=== PATIENT | male | born 2000 | race Caucasian/White ===

== ENCOUNTER 2020-10-29 09:48 | Observation (INO) | payer OTHER ==
[2020-10-29] VITALS (10 sets, daily range): BP systolic 95–126; BP diastolic 44–73
[~2020-10-29] VITALS: Ht 182.9 cm; Wt 75.0 kg
--- NOTE | 2020-10-29 06:04 | NUR ---
PATIENT IS AWAKE AND ALERT, PATIENT STATES LEFT HAND AND FINGERS ARE STILL NUMB, LEFT FINGERS WARM AND CAP REFILL OF 2-3 SEC, DISCHARGE INSTRUCTIONS GIVEN TO PATIENT AND HIS MOTHER AT BEDSIDE, AGREED TO GET DISCHARGED FROM HOSPITAL, AND VERBALIZED UNDERSTANDING. DENNIS WRAP AND DRESSING CDI AND SLING ON LEFT ARM, PIV D/C'D FROM RIGHT AC 18G CATHETER INTACT, PATIENT WAS TRANSFERRED WITH ONE BAG OF PERSONAL BELONGINGS TO PRIVATE VEHICLE WITH NO INCIDENTS, PATIENT'S MOTHER DRIVES PATIENT HOME. Addendum: 10/29/20 at 1716 by Lynnette Smith RN Amended: Links added.
[~2020-10-29 09:48] MED LIST: NO HOME MEDS; ZOF4T PO
[2020-10-29] MEDS ORDERED: fentaNYL/PF 50MCG/1 ML 2ML syringe ONE ×2 (09:53→13:18)
[2020-10-29] MEDS ORDERED: fentaNYL/PF 50MCG/1 ML 2ML syringe IV ONE (09:55)
[2020-10-29 10:11] LABS: BASOPHILS % (AUTO) 0.7 % (0-1); EOSINOPHILS # (AUTO) 0.1 X10'3 (0-0.9); EOSINOPHILS % (AUTO) 1.6 % (0-6); HEMATOCRIT 42.8 % (42.0-52.0); HEMOGLOBIN 14.9 g/dl (14.0-17.9); LYMPHOCYTES # (AUTO) 1.9 X10'3 (1.1-4.8); LYMPHOCYTES % (AUTO) 30.1 % (21-51); MEAN CORPUSCULAR HEMOGLOBIN 31.2 PG (27.0-31.0); MEAN CORPUSCULAR HGB CONC 34.8 g/dL (33.0-36.5); MEAN CORPUSCULAR VOLUME 89.7 FL (78-98); MEAN PLATELET VOLUME 8.8 FL (7.4-10.4); MONOCYTES # (AUTO) 0.6 X10'3 (0-0.9); MONOCYTES % (AUTO) 8.8 % (2-12); NEUTROPHILS # (AUTO) 3.7 X10'3 (1.8-7.7); NEUTROPHILS % (AUTO) 58.8 % (42-75); PLATELET COUNT 242 X10'3 (140-440); RED BLOOD COUNT 4.77 X10'6 (4.70-6.10); RED CELL DISTRIBUTION WIDTH 12.8 % (11.5-14.5); WHITE BLOOD COUNT 6.2 X10'3 (4.5-11.0)
[2020-10-29] MEDS ORDERED: ketamine 10mg/ml 20ml inj IV ONE (10:15)
[2020-10-29] MEDS ORDERED: TETanus/Pertussis (Acell)/Diphther VAC/PF (Tdap-Adult) 0.5ml syringe IMVAC ONE (10:15)
[2020-10-29] MEDS ORDERED: LIDOcaine 1% W/epiNEPHrine 1:200,000 10ml vial IJ ONE (10:15)
[2020-10-29] MEDS ORDERED: ketamine 50mg/5ml syringe IV ONE (10:25)
[2020-10-29 10:30] LABS: ALANINE AMINOTRANSFERASE 18 U/L (12-78); ALBUMIN 4.6 G/DL (3.4-5.0); ALKALINE PHOSPHATASE 62 IU/L (46-116); ANION GAP 8 (8-16); ASPARTATE AMINO TRANSFERASE 26 U/L (10-37); BILIRUBIN,TOTAL 0.9 MG/DL (0.1-1.0); BLOOD UREA NITROGEN 13 MG/DL (7-18); BUN/CREATININE RATIO 12.5 (5.4-32.0); CALCIUM 9.8 MG/DL (8.5-10.1); CHLORIDE 104 MMOL/L (99-107); CREATININE 1.04 MG/DL (0.60-1.10); GLUCOSE 124 MG/DL (70-104); POTASSIUM 3.9 MMOL/L (3.5-5.1); SODIUM 140 MMOL/L (135-145); TOTAL CARBON DIOXIDE 27.8 MMOL/L (24-32); eGFR 89 ML/MIN
--- NOTE | 2020-10-29 10:30 | NUR ---
Patient arrived via POV to ED. Patient has been extremely uncooperative and difficult to console. Patient has been cursing, yelling, and disruptive to department as whole.
[2020-10-29] MEDS ORDERED: ceFAZolin/D5W- 1GM premix 50 ML IV STA (10:33)
[2020-10-29] MEDS ORDERED: ketamine 50 mg/ml 10ml vial IV ONE (10:35)
[2020-10-29] MEDS: propofol 1000mg/100ml bottle 100 ML IV ONE ×2 (10:46→11:15)
[2020-10-29] MEDS ORDERED: iohexol 300mg/ml 100ml inj. ONE (11:30)
[2020-10-29] MEDS ORDERED: morphine 2 MG/ML inj. syringe IV ONE (11:30)
--- NOTE | 2020-10-29 11:31 | NUR ---
propofol 100mg total admin by dr porter.
[2020-10-29] MEDS ORDERED: PENI500T2 PO (11:58)
[2020-10-29] MEDS ORDERED: gentamicin in saline, iso-osm 80 MG/50 ML premix IV ONE (12:00)
[2020-10-29] MEDS ORDERED: AMOX500C4 PO (12:22)
--- NOTE | 2020-10-29 12:31 | NUR ---
Patient mother came to bedside. Per patient he stated he asked for a mask for 1.5 hours upon arrival. Patient did not ask for mask upon arrival and was rather disruptive to ED. Dr. Chirinos came bedside to discuss with mother.
[2020-10-29] MEDS ORDERED: gentamicin inj 80 MG in normal saline 100ml IV soln 100 ML IV ONE (12:35)
[2020-10-29] MEDS ORDERED: gentamicin inj 80 MG in normal saline 100ml IV soln 98 ML IV ONE (12:45)
[2020-10-29] MEDS ORDERED: morphine 4 MG/ML inj SYRINge IV ONE (12:55)
--- NOTE | 2020-10-29 12:57 | NUR ---
OR bedside. Patient to OR. Mother bedside and aware
--- NOTE | 2020-10-29 13:11 | NUR ---
patient to OR
[2020-10-29] MEDS ORDERED: sevoflurane 250ml liquid IH ONE (13:14)
[2020-10-29] MEDS ORDERED: ondansetron/PF 4mg/2ml inj IV PRN ×2 (13:15→13:20)
[2020-10-29] MEDS ORDERED: meperidine/PF 25mg/ml syringe IV PRN ×3 (13:15)
[2020-10-29] MEDS ORDERED: proCHLORperazine 10 MG/2 ml inj IV PRN (13:15)
[2020-10-29] MEDS ORDERED: morphine 4 MG/ML inj SYRINge IV PRN (13:15)
[2020-10-29] MEDS ORDERED: ringers solution, lacted 1,000 ML IV SCH (13:15)
[2020-10-29] MEDS ORDERED: morphine 2 MG/ML inj. syringe IV PRN ×3 (13:15→13:20)
[2020-10-29] MEDS ORDERED: midazolam 1 mg/ML 2ml injection ONE (13:18)
[2020-10-29] MEDS ORDERED: magnesium 4gm in 100ml NS 100 ML IV PRN (13:20)
[2020-10-29] MEDS ORDERED: normal saline 1000ml 1,000 ML IV SCH (13:20)
[2020-10-29] MEDS ORDERED: mag hydrox/Alum hydrox/simeth 30ml oral suspension PO PRN (13:20)
[2020-10-29] MEDS ORDERED: HYDROcodone/acetaminophen 10/325mg tab PO PRN (13:20)
[2020-10-29] MEDS ORDERED: potassium Cl 40MEQ/1/2NS 520ml 520 ML IV PRN ×2 (13:20)
[2020-10-29] MEDS ORDERED: potassium Cl 20 mEq SR tablet PO PRN ×2 (13:20)
[2020-10-29] MEDS ORDERED: HYDROcodone/acetaminophen 5mg/325mg tablet PO PRN (13:20)
[2020-10-29] MEDS ORDERED: acetaminophen 325mg tablet PO PRN (13:20)
[2020-10-29] MEDS ORDERED: magnesium 2GM in 50ml NS 50 ML IV PRN (13:20)
[2020-10-29] MEDS ORDERED: magnesium hydroxide 30ml (MOM) UD suspension PO PRN (13:20)
[2020-10-29 13:23] LABS: CLARITY,URINE CLEAR (Clear); COLOR,URINE YELLOW (Yellow); GLUCOSE, URINE NEGATIVE (Neg); KETONES,URINE NEGATIVE (Neg); LEUKOCYTE ESTERASE ,URINE NEGATIVE (Neg); NITRITES, URINE NEGATIVE (Neg); OCCULT BLOOD,URINE NEGATIVE (Neg); PH,URINE 5.5 (4.8-8.0); PROTEIN,URINE NEGATIVE (Neg); UROBILINOGEN,URINE 0.2 E.U/dL (0.2-1.0)
[2020-10-29 13:50] LABS: UA COLLECTION TYPE NON-SPECIFIED
[2020-10-29] MEDS ORDERED: propofol inj 20 ML IV ONE (13:56)
[2020-10-29] MEDS ORDERED: ROPIVAcaine 0.5% (5mg/ml) 30ml vial ONE (13:56)
--- NOTE | 2020-10-29 14:24 | NUR ---
Received from OR via [facility], accompanied by Anesthesiologist and report given by Anesthesiologist. PATIENT IS SLEEPING ON SUPINE, LMA IN PLACE WITH 10L O2 MASK OVER THE TUBE, V.S. STABLE, PIV ON LEFT AC 18G, LR RUNNING AT 100ML/HR, LEFT WRIST WRAPPED WITH DENNIS WRAP AND DRESSING CDI, SLING ON LEFT ARM, AND ICE ON LEFT WRIST AND ELEVATED WITH PILLOWS, WILL MONITOR. Addendum: 10/29/20 at 1502 by Lynnette Smith RN Amended: Links added.
--- NOTE | 2020-10-29 14:24 | NUR ---
INITIAL ASSESSMENT OF PATIENT AT RECOVERY ROOM, PATIENT IS NOT ABLE TO MOVE HIS FINGERS OR FEEL THE SENSATIONS ON LEFT HAND AND FINGERS AT THIS TIME, HAS CAP REFILL OF 2-3 SEC ON LEFT FINGERS, WARM TO TOUCH. Addendum: 10/29/20 at 1856 by Lynnette Smith RN Amended: Links added.
--- NOTE | 2020-10-29 14:54 | NUR ---
PATIENT'S LMA EXTUBATED APPROXIMATELY 30 MINUTES AFTER HIS ARRIVAL WITH NO INCIDENTS. PATIENT IS ALERT AND ORIENTATED, V.S. STABLE AFTER EXTUBATION. Addendum: 11/01/20 at 0828 by Lynnette Smith RN Amended: Links added.
--- NOTE | 2020-10-29 15:30 | NUR ---
PATIENT'S MOTHER AND PATIENT TALKED TO DR. JARQUIN AND IS OK TO DISCHARGE PATIENT HOME WITH PRESCRIPTIONS OF KEFLEX AND NORCO 5/325. PATIENT AND MOTHER AGREED THAT IT IS OK TO GET DISCHARGED HOME WITH THE PRESCRIPTIONS, ELEVATE THE ARM ABOVE HEART, AND ICE, AFTER DISCUSSING WITH DR. JARQUIN. AFTER LEFT AND EXPLAINING THE PRESCRIPTIONS THAT PATIENT IS GETTING, MOTHER OF THE PATIENT STATES "THERE IS NO WAY NORCO 5 WILL HELP WITH PAIN AT HOME. I KNOW WHAT NORCO 5 IS AND IT DIDN'T EVEN HELP WITH THE PAIN WHEN HE HAD HIS TOOTH PULLED RECENTLY. I'M NOT TAKING HIM HOME WITH ONLY NORCO 5." MOTHER THEN CALLED DR. JARQUIN'S OFFICE AND LEFT MESSAGE ABOUT REQUESTING STRONGER PAIN MEDICATION. DIRECTOR AGUIRRE HAS BEEN NOTIFIED. Addendum: 10/29/20 at 1603 by Lynnette Smith RN Amended: Links added.
--- NOTE | 2020-10-29 15:50 | NUR ---
DIRECTOR AGUIRRE TALKED WITH MOTHER AND PATIENT ABOUT THIER REQUEST AND MOTHER IS REQUESTING TO EITHER GET PRESCRIPTION FOR A STRONGER PAIN MEDICATION OR STAYING IN THE HOSPITAL. TIMOTHY CALLED DR. JARQUIN FOR OBTAINING ORDERS. Addendum: 10/29/20 at 1603 by Lynnette Smith RN Amended: Links added.
[2020-10-29] MEDS ORDERED: ceFAZolin/D5W- 1GM premix 50 ML IV SCH (16:00)
--- NOTE | 2020-10-29 16:04 | NUR ---
PATIENT IS STABLE, ALERT AND ORIENTED, DENIES PAIN, NAUSEA, OR DISTRESS AT DISCHARGE, PATIENT STILL NOT ABLE TO MOVE LEFT FINGERS, LEFT FINGERS WARM TO TOUCH AND CAP REFILL OF 2-3 SEC NOTED, PIV D/C'D FROM RIGHT AC 18G CATHETER INTACT, MOTHER OF PATIENT AGREED FOR PATIENT TO BE DISCHARGED HOME WITH PRESCRIPTIONS FOR PAIN (NORCO 5/325) AND ANTIBIOTICS (KEFLEX), AND VERBALIZED UNDERSTANDING OF DISCHARGE INSTRUCTIONS INCLUDING TO ELEVATE THE LEFT ARM AND ICE TO MANAGE PAIN. DENNIS WRAP AND DRESSING CDI ON LEFT WRIST AND SLING ON LEFT ARM, PATIENT WAS TRANSFERRED WITH ONE BAG OF BELONGINGS TO PRIVATE VEHICLE WITH WHEELCHAIR WITHOUT INCIDENTS, MOTHER OF PATIENT WILL DRIVE HOME. Addendum: 10/29/20 at 1827 by Lynnette Smith RN Amended: Links added.
--- NOTE | 2020-10-29 16:23 | NUR ---
Spoke with Dr. Duran after speaking with mother of pt. She is requesting he stay overnight and get IV pain medicine because his arm is going to hurt as soon as the block wears off. She was also upset because she believed the norco prescription wasn't strong enough. I explained to her that he doesn't meet admission criteria and that often times patients that have this surgery are discharged in the same day. In addition the pt is having no pain at all. The block is working very well. Called and spoke with Dr. Duran. He also stated that the pt didn't need to stay the night. Mom was demanding stronger pain medicine because she was told that pt's arm was going to hurt when the block wore off. I asked Dr. Duran about this as well, and he said he could double the norco 5's for 24 hours, but then needed to cut back or he would run out of pills. He also suggested that he use motrin, or aleve in addition to the norco. I did extensive teaching with mom about ice, elevation, protecting the ulnar nerve until the block wears off, and adding motrin or aleve to the pain medicine. The mom stated that she understood all of the instructions and they both seemed satisfied when they left.
[2020-10-29] MEDS ORDERED: K and/or MAG REPLACEMENT MC SCH (20:00)
[2020-10-29] MEDS ORDERED: amoxicillin 250mg capsule PO SCH (21:00)
[2020-10-30] MEDS ORDERED: ONDA8TAB13 PO (01:50)
== END 2020-10-29 16:23 | disposition home or self-care (01) ==
LOC: ER 09:49 → ED HOLD 13:19
PROVIDERS: ADMIT Family Medicine; ATTEND Family Medicine
DX: S52.502B Unspecified fracture of the lower end of left radius, initial encounter for open fracture type I or II (principal); S52.002B Unspecified fracture of upper end of left ulna, initial encounter for open fracture type I or II; Z20.822 Contact with and (suspected) exposure to COVID-19; S01.81XA Laceration without foreign body of other part of head, initial encounter; Z23 Encounter for immunization; F12.90 Cannabis use, unspecified, uncomplicated; W13.2XXA Fall from, out of or through roof, initial encounter; Y93.89 Activity, other specified; Y92.89 Other specified places as the place of occurrence of the external cause
CPT/HCPCS: 12011; 25608; 36415; 70450; 71045; 71260; 72125; 73090; 73130; 74177; 80053; 81003; 85025; 85610; 86885; 86900; 86901; 87635; 90471; 94760; 94799; 96365; 96367; 96375; 96376; 99291; 99292; A6222; C1713; C9803; G0378; J0690; J1580; J2250; J2270; J2704; J3010; J7120; Q9967; 90715; A4215; A4618; A6449; A7000; J2795

== ENCOUNTER 2020-10-29 22:22 | Emergency (ER) | payer OTHER ==
[~2020-10-29] VITALS: Ht 182.9 cm; Wt 75.0 kg
[~2020-10-29 22:22] MED LIST changes: +AMOX500C4 PO; +PENI500T2 PO
[2020-10-29] MEDS ORDERED: LORazepam 2 mg/ml vial IV ONE (22:40)
[2020-10-29] MEDS ORDERED: proCHLORperazine 10 MG/2 ml inj IV ONE (22:40)
[2020-10-29] MEDS ORDERED: morphine 4 MG/ML inj SYRINge IV ONE (22:40)
[2020-10-30] MEDS: morphine 2 MG/ML inj. syringe IV PRN ×2 (00:22→01:05)
[2020-10-30] MEDS ORDERED: LORazepam 2 mg/ml vial IV ONE (00:35)
[2020-10-30] MEDS ORDERED: ONDA8TAB13 PO (01:50)
[2020-10-30 02:17] VITALS: BP 145/89
[2020-10-30] MEDS ORDERED: morphine 2 MG/ML inj. syringe IM ONE (02:35)
== END 2020-10-30 02:48 | disposition home or self-care (01) ==
LOC: ER 22:23
DX: G89.18 Other acute postprocedural pain (principal); Z88.2 Allergy status to sulfonamides; Z79.899 Other long term (current) drug therapy
CPT/HCPCS: 96372; 96374; 96375; 96376; 99285; J0780; J2060; J2270

== ENCOUNTER 2021-02-14 07:07 | Day surgery (SDC) | payer OTHER ==
[2021-02-07 15:13] LABS: BASOPHILS % (AUTO) 0.7 % (0-1); EOSINOPHILS # (AUTO) 0.1 X10'3 (0-0.9); EOSINOPHILS % (AUTO) 1.7 % (0-6); LYMPHOCYTES # (AUTO) 1.4 X10'3 (1.1-4.8); LYMPHOCYTES % (AUTO) 20.6 % (21-51); MEAN CORPUSCULAR HEMOGLOBIN 30.7 PG (27.0-31.0); MEAN CORPUSCULAR VOLUME 87.8 FL (78-98); MEAN PLATELET VOLUME 8.6 FL (7.4-10.4); MONOCYTES # (AUTO) 0.6 X10'3 (0-0.9); MONOCYTES % (AUTO) 9.1 % (2-12); NEUTROPHILS # (AUTO) 4.5 X10'3 (1.8-7.7); NEUTROPHILS % (AUTO) 67.9 % (42-75); PRE OP HEMATOCRIT 40.1 % (42.0-52.0); PRE OP PLATELET COUNT 238 X10'3 (140-440); RED BLOOD COUNT 4.56 X10'6 (4.70-6.10); RED CELL DISTRIBUTION WIDTH 12.7 % (11.5-14.5)
[2021-02-07 15:29] LABS: ALBUMIN 4.1 G/DL (3.4-5.0); ALBUMIN/GLOBULIN RATIO 0.9 (1.1-1.5); ALKALINE PHOSPHATASE 79 IU/L (46-116); BLOOD UREA NITROGEN 11 MG/DL (7-18); BUN/CREATININE RATIO 12.4 (5.4-32.0); CALCIUM 9.1 MG/DL (8.5-10.1); CHLORIDE 102 MMOL/L (99-107); CREATININE 0.89 MG/DL (0.60-1.10); PRE OP ALT 12 U/L (30-65); PRE OP ANION GAP 6 (8-16); PRE OP AST 12 U/L (10-37); PRE OP BILIRUB, TOTAL 0.7 MG/DL (0.0-1.0); PRE OP GLUCOSE 94 MG/DL (70-104); PRE OP POTASSIUM 3.9 MMOL/L (3.4-5.1); PRE OP SODIUM 140 MMOL/L (135-145); TOTAL CARBON DIOXIDE 31.7 MMOL/L (24-32); TOTAL PROTEIN 8.7 G/DL (6.4-8.2); eGFR > 90 ML/MIN
[2021-02-14] VITALS (8 sets, daily range): BP systolic 85–125; BP diastolic 53–78
[~2021-02-14] VITALS: Ht 182.9 cm; Wt 67.7 kg
[~2021-02-14 07:07] MED LIST changes: -AMOX500C4 PO; +HYDR-3964 PO; -NO HOME MEDS; -PENI500T2 PO; -ZOF4T PO; +cefazolin/dext.iso 2gm/100ml IV ONE; +famotidine 20mg tablet PO ONE; +ringers solution, lacted 1,000 ML IV SCH
[2021-02-14] MEDS ORDERED: LIDOcaine 0.5% (5mg/ml) 50ml vial ONE (07:11)
[2021-02-14] MEDS ORDERED: ringers solution, lacted 1,000 ML IV SCH (08:00)
[2021-02-14] MEDS ORDERED: ondansetron/PF 4mg/2ml inj IV PRN (08:00)
[2021-02-14] MEDS ORDERED: labetalol 20mg/4ml (5mg/ml) syringe IV PRN (08:00)
[2021-02-14] MEDS ORDERED: fentaNYL/PF 50MCG/1 ML 2ML syringe IV PRN ×2 (08:00)
[2021-02-14] MEDS ORDERED: morphine 2 MG/ML inj. syringe IV PRN (08:00)
[2021-02-14] MEDS ORDERED: morphine 4 MG/ML inj SYRINge IV PRN (08:00)
[2021-02-14] MEDS ORDERED: hydrALAZINE 20mg/ml inj. IV PRN (08:00)
[2021-02-14] MEDS ORDERED: CLINDAMYCIN PO (08:25)
[2021-02-14] MEDS ORDERED: BUPIVAcaine/PF 2.5mg/ml (0.25%) 10ml vial ONE ×2 (09:49→10:25)
[2021-02-14] MEDS ORDERED: fentaNYL/PF 50MCG/1 ML 2ML syringe ONE (09:56)
[2021-02-14] MEDS ORDERED: MIDAZolam 1mg/ml 10ml vial ONE (09:56)
[2021-02-14] MEDS ORDERED: ketorolac trometh. 30mg/ml inj. ONE (09:56)
[2021-02-14] MEDS ORDERED: propofol inj 20 ML IV ONE (10:16)
[2021-02-14] MEDS ORDERED: LIDOcaine 2% (20mg/ml) 5ml vial ONE (10:16)
--- NOTE | 2021-02-14 10:55 | NUR ---
Received from OR via [facility] IN STABLE CONDITION , accompanied by Anesthesiologist and HOOKMAN report given by Susana. Addendum: 02/14/21 at 1134 by Dolores Birmingham RN Amended: Links added.
--- NOTE | 2021-02-14 11:55 | NUR ---
PATIENT DISCHARGED FROM PACU IN STABLE CONDITION AFTER WRITTEN AND VERBAL DISCHARGE INSTRUCTIONS GIVEN. PATIENT GAVE VERBAL UNDERSTANDING OF INSTURCTIONS GIVEN. PATIENT LEFT FACILITY VIA WHEELCHAIR WITH RN. Addendum: 02/14/21 at 1224 by Dolores Birmingham RN Amended: Links added.
== END 2021-02-14 11:55 | disposition home or self-care (01) ==
LOC: PAS 07:07
PROVIDERS: ATTEND Orthopaedic Surgery Hand Surgery
DX: T84.7XXA Infection and inflammatory reaction due to other internal orthopedic prosthetic devices, implants and grafts, initial encounter (principal); M86.8X3 Other osteomyelitis, forearm; F17.290 Nicotine dependence, other tobacco product, uncomplicated; F12.90 Cannabis use, unspecified, uncomplicated; Z87.11 Personal history of peptic ulcer disease; Z79.891 Long term (current) use of opiate analgesic; Z20.822 Contact with and (suspected) exposure to COVID-19; Z79.899 Other long term (current) drug therapy; Z79.2 Long term (current) use of antibiotics; Y83.8 Other surgical procedures as the cause of abnormal reaction of the patient, or of later complication, without mention of misadventure at the time of the procedure; Y92.89 Other specified places as the place of occurrence of the external cause
CPT/HCPCS: 20680; 25151; 36415; 80053; 82948; 85025; 87070; 87075; A6222; J1885; J2001; J2250; J2405; J2704; J3010; J3490; U0003; U0005; 87077; 87186; A4215; A6449; A7000; J7120

== ENCOUNTER 2021-06-10 16:07 | Outpatient (CLI) | payer OTHER ==
[~2021-06-10 16:07] MED LIST changes: +CLINDAMYCIN PO; -cefazolin/dext.iso 2gm/100ml IV ONE; -famotidine 20mg tablet PO ONE; -ringers solution, lacted 1,000 ML IV SCH
[2021-06-10 16:35] LABS: ALBUMIN 3.9 G/DL (3.4-5.0); ANION GAP 10 (8-16); BLOOD UREA NITROGEN 9 MG/DL (7-18); BUN/CREATININE RATIO 11.8 (5.4-32.0); C-REACTIVE PROTEIN 0.61 MG/DL (0.0-0.5); CALCIUM 8.5 MG/DL (8.5-10.1); CHLORIDE 106 MMOL/L (99-107); CREATININE 0.76 MG/DL (0.60-1.10); GLUCOSE 71 MG/DL (70-104); POTASSIUM 3.6 MMOL/L (3.5-5.1); SODIUM 143 MMOL/L (135-145); TOTAL CARBON DIOXIDE 27.1 MMOL/L (24-32); eGFR > 90 ML/MIN
[2021-06-10 17:06] LABS: EOSINOPHILS # (AUTO) 0.1 X10'3 (0-0.9); EOSINOPHILS % (AUTO) 1.9 % (0-6); HEMATOCRIT 31.7 % (42.0-52.0); HEMOGLOBIN 11.3 g/dl (14.0-17.9); LYMPHOCYTES # (AUTO) 1.3 X10'3 (1.1-4.8); LYMPHOCYTES % (AUTO) 33.7 % (21-51); MEAN CORPUSCULAR HEMOGLOBIN 29.9 PG (27.0-31.0); MEAN CORPUSCULAR HGB CONC 35.5 g/dL (33.0-36.5); MEAN CORPUSCULAR VOLUME 84.3 FL (78-98); MEAN PLATELET VOLUME 7.9 FL (7.4-10.4); MONOCYTES # (AUTO) 0.4 X10'3 (0-0.9); MONOCYTES % (AUTO) 9.3 % (2-12); NEUTROPHILS # (AUTO) 2.1 X10'3 (1.8-7.7); NEUTROPHILS % (AUTO) 54.1 % (42-75); PLATELET COUNT 265 X10'3 (140-440); RED BLOOD COUNT 3.76 X10'6 (4.70-6.10); RED CELL DISTRIBUTION WIDTH 13.9 % (11.5-14.5); WHITE BLOOD COUNT 3.9 X10'3 (4.5-11.0)
== END 2021-06-11 23:59 | disposition home or self-care (01) ==
LOC: LAB SPEC 16:07
PROVIDERS: ATTEND Orthopaedic Surgery
DX: M86.9 Osteomyelitis, unspecified (principal)
CPT/HCPCS: 80048; 85025; 85651; 86140

== ENCOUNTER 2021-06-17 15:04 | Outpatient (CLI) | payer OTHER ==
[2021-06-17 15:33] LABS: BASOPHILS # (AUTO) 0.1 X10'3 (0-0.2); BASOPHILS % (AUTO) 1.1 % (0-1); EOSINOPHILS # (AUTO) 0.1 X10'3 (0-0.9); EOSINOPHILS % (AUTO) 1.2 % (0-6); HEMATOCRIT 37.7 % (42.0-52.0); HEMOGLOBIN 13.5 g/dl (14.0-17.9); LYMPHOCYTES # (AUTO) 1.1 X10'3 (1.1-4.8); LYMPHOCYTES % (AUTO) 20.9 % (21-51); MEAN CORPUSCULAR HEMOGLOBIN 30.6 PG (27.0-31.0); MEAN CORPUSCULAR HGB CONC 35.7 g/dL (33.0-36.5); MEAN CORPUSCULAR VOLUME 85.5 FL (78-98); MEAN PLATELET VOLUME 8.4 FL (7.4-10.4); MONOCYTES # (AUTO) 0.5 X10'3 (0-0.9); MONOCYTES % (AUTO) 10.1 % (2-12); NEUTROPHILS # (AUTO) 3.5 X10'3 (1.8-7.7); NEUTROPHILS % (AUTO) 66.7 % (42-75); PLATELET COUNT 250 X10'3 (140-440); RED BLOOD COUNT 4.41 X10'6 (4.70-6.10); WHITE BLOOD COUNT 5.2 X10'3 (4.5-11.0)
[2021-06-17 15:45] LABS: ALBUMIN 4.3 G/DL (3.4-5.0); ANION GAP 8 (8-16); BLOOD UREA NITROGEN 9 MG/DL (7-18); BUN/CREATININE RATIO 9.8 (5.4-32.0); C-REACTIVE PROTEIN 0.14 MG/DL (0.0-0.5); CHLORIDE 103 MMOL/L (99-107); CREATININE 0.92 MG/DL (0.60-1.10); GLUCOSE 96 MG/DL (70-104); POTASSIUM 4.1 MMOL/L (3.5-5.1); SODIUM 139 MMOL/L (135-145); TOTAL CARBON DIOXIDE 28.4 MMOL/L (24-32); eGFR > 90 ML/MIN
== END 2021-06-17 23:59 | disposition home or self-care (01) ==
LOC: LAB SPEC 15:04
PROVIDERS: ATTEND Internal Medicine Infectious Disease
DX: M86.9 Osteomyelitis, unspecified (principal)
CPT/HCPCS: 36415; 80048; 85025; 85651; 86140

== ENCOUNTER 2021-06-27 18:55 | Outpatient (CLI) | payer OTHER ==
[2021-06-27 19:20] LABS: ALBUMIN 4.2 G/DL (3.4-5.0); ANION GAP 9 (8-16); BLOOD UREA NITROGEN 16 MG/DL (7-18); BUN/CREATININE RATIO 19.8 (5.4-32.0); C-REACTIVE PROTEIN 0.14 MG/DL (0.0-0.5); CALCIUM 8.8 MG/DL (8.5-10.1); CHLORIDE 105 MMOL/L (99-107); CREATININE 0.81 MG/DL (0.60-1.10); GLUCOSE 86 MG/DL (70-104); POTASSIUM 3.7 MMOL/L (3.5-5.1); SODIUM 143 MMOL/L (135-145); TOTAL CARBON DIOXIDE 29.4 MMOL/L (24-32); eGFR > 90 ML/MIN
[2021-06-27 19:21] LABS: BASOPHILS % (AUTO) 0.6 % (0-1); EOSINOPHILS # (AUTO) 0.1 X10'3 (0-0.9); EOSINOPHILS % (AUTO) 2.9 % (0-6); HEMATOCRIT 38.5 % (42.0-52.0); HEMOGLOBIN 13.7 g/dl (14.0-17.9); LYMPHOCYTES # (AUTO) 1.4 X10'3 (1.1-4.8); LYMPHOCYTES % (AUTO) 30.5 % (21-51); MEAN CORPUSCULAR HEMOGLOBIN 30.8 PG (27.0-31.0); MEAN CORPUSCULAR HGB CONC 35.5 g/dL (33.0-36.5); MEAN CORPUSCULAR VOLUME 86.6 FL (78-98); MEAN PLATELET VOLUME 9.1 FL (7.4-10.4); MONOCYTES # (AUTO) 0.4 X10'3 (0-0.9); MONOCYTES % (AUTO) 9.6 % (2-12); NEUTROPHILS # (AUTO) 2.6 X10'3 (1.8-7.7); NEUTROPHILS % (AUTO) 56.4 % (42-75); PLATELET COUNT 197 X10'3 (140-440); RED BLOOD COUNT 4.45 X10'6 (4.70-6.10); RED CELL DISTRIBUTION WIDTH 13.8 % (11.5-14.5); WHITE BLOOD COUNT 4.6 X10'3 (4.5-11.0)
== END 2021-06-27 23:59 | disposition home or self-care (01) ==
LOC: LAB SPEC 18:55
PROVIDERS: ATTEND Orthopaedic Surgery
DX: M86.9 Osteomyelitis, unspecified (principal)
CPT/HCPCS: 36415; 80048; 85025; 85651; 86140

== ENCOUNTER 2021-07-04 19:52 | Outpatient (CLI) | payer OTHER ==
[2021-07-04 20:12] LABS: BASOPHILS % (AUTO) 0.9 % (0-1); EOSINOPHILS # (AUTO) 0.1 X10'3 (0-0.9); EOSINOPHILS % (AUTO) 2.9 % (0-6); HEMATOCRIT 38.5 % (42.0-52.0); HEMOGLOBIN 13.7 g/dl (14.0-17.9); LYMPHOCYTES # (AUTO) 1.2 X10'3 (1.1-4.8); LYMPHOCYTES % (AUTO) 23.2 % (21-51); MEAN CORPUSCULAR HEMOGLOBIN 30.8 PG (27.0-31.0); MEAN CORPUSCULAR HGB CONC 35.5 g/dL (33.0-36.5); MEAN CORPUSCULAR VOLUME 86.7 FL (78-98); MEAN PLATELET VOLUME 9.3 FL (7.4-10.4); MONOCYTES # (AUTO) 0.4 X10'3 (0-0.9); MONOCYTES % (AUTO) 8.9 % (2-12); NEUTROPHILS # (AUTO) 3.2 X10'3 (1.8-7.7); NEUTROPHILS % (AUTO) 64.1 % (42-75); PLATELET COUNT 184 X10'3 (140-440); RED BLOOD COUNT 4.43 X10'6 (4.70-6.10); RED CELL DISTRIBUTION WIDTH 13.3 % (11.5-14.5)
[2021-07-04 20:13] LABS: ALBUMIN 4.1 G/DL (3.4-5.0); ANION GAP 8 (8-16); BLOOD UREA NITROGEN 10 MG/DL (7-18); BUN/CREATININE RATIO 12.2 (5.4-32.0); C-REACTIVE PROTEIN 0.25 MG/DL (0.0-0.5); CALCIUM 8.9 MG/DL (8.5-10.1); CHLORIDE 107 MMOL/L (99-107); CREATININE 0.82 MG/DL (0.60-1.10); GLUCOSE 108 MG/DL (70-104); POTASSIUM 4.1 MMOL/L (3.5-5.1); SODIUM 143 MMOL/L (135-145); TOTAL CARBON DIOXIDE 28.1 MMOL/L (24-32); eGFR > 90 ML/MIN
== END 2021-07-04 23:59 | disposition home or self-care (01) ==
LOC: LAB SPEC 19:52
PROVIDERS: ATTEND Internal Medicine Infectious Disease
DX: M86.9 Osteomyelitis, unspecified (principal)
CPT/HCPCS: 36415; 80048; 85025; 85651; 86140

== ENCOUNTER 2021-12-09 05:56 | Day surgery (SDC) | payer OTHER ==
[2021-12-09] VITALS (9 sets, daily range): BP systolic 102–129; BP diastolic 47–84
[~2021-12-09] VITALS: Ht 152.4 cm; Wt 69.6 kg
[~2021-12-09 05:56] MED LIST changes: -CLINDAMYCIN PO; -HYDR-3964 PO; +NO HOME MEDS; +cefazolin/dext.iso 2gm/50ml IV ONE; +famotidine 20mg tablet PO ONE; +ringers solution, lacted 1,000 ML IV SCH
[2021-12-09] MEDS ORDERED: BUPIVAcaine 0.5% inj/PF 30 ML ONE (06:46)
[2021-12-09] MEDS ORDERED: MIDAZolam 1 MG/ML 5ML VIAL ONE (07:34)
[2021-12-09] MEDS ORDERED: fentaNYL/PF 50MCG/1 ML 2ML syringe ONE (07:34)
[2021-12-09] MEDS ORDERED: LIDOcaine 2% (20mg/ml) 5ml vial ONE ×2 (07:53)
[2021-12-09] MEDS ORDERED: dexamethasone sod phosphate 4mg/ml inj. ONE (07:53)
[2021-12-09] MEDS ORDERED: ROPIVAcaine 0.5% (5mg/ml) 30ml vial ONE (07:53)
[2021-12-09] MEDS ORDERED: tobramycin sulfate 1.2gm vial ONE (08:00)
[2021-12-09] MEDS ORDERED: propofol inj 20 ML IV ONE (08:00)
[2021-12-09] MEDS ORDERED: vancomycin 1,000mg inj ONE (08:06)
[2021-12-09] MEDS ORDERED: meperidine/PF 25mg/ml syringe IV PRN ×3 (08:20)
[2021-12-09] MEDS ORDERED: ringers solution, lacted 1,000 ML IV SCH (08:20)
[2021-12-09] MEDS ORDERED: morphine 2 MG/ML inj. syringe IV PRN (08:20)
[2021-12-09] MEDS ORDERED: morphine 4 MG/ML inj SYRINge IV PRN (08:20)
[2021-12-09] MEDS ORDERED: ondansetron/PF 4mg/2ml inj IV PRN (08:20)
[2021-12-09] MEDS ORDERED: proCHLORperazine 10 MG/2 ml inj IV PRN (08:20)
--- NOTE | 2021-12-09 09:50 | NUR ---
Received from OR via [facility] , accompanied by Anesthesiologist DR CASTRO and report given by Anesthesiolgist. PT IS ALERT AND ORIENTED, TALKING. LEFT AXILLARY BLOCK IN PLACE, LABEL PLACED PER ANESTHESIA REQUEST.
--- NOTE | 2021-12-09 10:40 | NUR ---
DISCHARGE INSTRUCTIONS GIVEN TO PT, HE IS NOT NAUSEATED ANY MORE. PT ABLE TO DRINK AND KEEP DOWN WATER AND CRACKER. PT DENIES PAIN, NERVE BLOCK REMAINS IN PLACE, LEFT FINGERS ARE PINK AND WARM, GOOD CAPILILLARY REFILL PT TAKEN TO LOBBY VIA WHEELCHAIR, WAITING IN CALL. DISCHARGE INSTRUCTIONS ALSO EXPLAINED TO .
== END 2021-12-09 10:40 | disposition home or self-care (01) ==
LOC: PAS 05:56
PROVIDERS: ATTEND Orthopaedic Surgery Hand Surgery
DX: M86.8X4 Other osteomyelitis, hand (principal); M25.642 Stiffness of left hand, not elsewhere classified; M65.842 Other synovitis and tenosynovitis, left hand; S56.512A Strain of other extensor muscle, fascia and tendon at forearm level, left arm, initial encounter; G89.18 Other acute postprocedural pain; Z20.822 Contact with and (suspected) exposure to COVID-19; Z79.899 Other long term (current) drug therapy; X58.XXXA Exposure to other specified factors, initial encounter; Y93.89 Activity, other specified; Y92.89 Other specified places as the place of occurrence of the external cause; Y99.8 Other external cause status
CPT/HCPCS: 25310; 26440; 29846; 36415; 64415; 76942; 82948; C1713; J1100; J2250; J2405; J2704; J2795; J3010; J3260; J3370; J3490; J7030; J7120; S0020; U0003; U0005; Z7506; Z7508; Z7512; A4215; A4618; A7000